=== PATIENT | female | born 1990 | race Caucasian/White ===

== ENCOUNTER 2018-09-08 08:34 | Inpatient (IN) | payer MEDICAID ==
[2018-09-08 09:44] LABS: ADD MAN DIFF? NO
[2018-09-08 09:50] LABS: WHITE BLOOD COUNT 8.9 10^3/ul (4.8-10.8)
[2018-09-08 09:50] LABS: BASOPHILS % 0.2 % (0.0-2.0); EOSINOPHILS % 0.3 % (0.0-7.0); HEMATOCRIT 37.7 % (37.0-47.0); HEMOGLOBIN 12.5 g/dl (12.0-16.0); LYMPHOCYTES # 1.6 10^3/ul (0.8-2.9); LYMPHOCYTES % 17.8 % (15.0-51.0); MEAN CORPUSCULAR HEMOGLOBIN 29.3 pg (29.0-33.0); MEAN CORPUSCULAR HGB CONC 33.2 g/dl (32.0-37.0); MEAN CORPUSCULAR VOLUME 88.3 fl (82.0-101.0); MONOCYTE # 0.6 10^3/ul (0.3-0.9); MONOCYTES % 6.5 % (0.0-11.0); NEUTROPHIL # 6.6 10^3/ul (1.6-7.5); NEUTROPHILS % 74.5 % (39.0-77.0); PLATELET COUNT 187 10^3/UL (140-415); RED BLOOD COUNT 4.27 10^6/ul (4.20-5.40); RED CELL DISTRIBUTION WIDTH 12.1 % (11.5-14.5)
[2018-09-08 10:03] LABS: ADD UMIC YES; UR ASCORBIC ACID NEGATIVE (NEGATIVE); UR BILIRUBIN (Dip) NEGATIVE (NEGATIVE); UR BLOOD (Dip) 3+ mg/dL (NEGATIVE); UR CLARITY CLEAR (CLEAR); UR COLOR YELLOW (YELLOW); UR GLUCOSE (Dip) NEGATIVE (NEGATIVE); UR KETONES (Dip) NEGATIVE (NEGATIVE); UR LEUKOCYTE ESTERASE (Dip) NEGATIVE Leu/ul (NEGATIVE); UR NITRITE (Dip) NEGATIVE (NEGATIVE); UR RBC > 182 /HPF (0-5); UR SPECIFIC GRAVITY (Dip) 1.014 (1.003-1.030); UR TOTAL PROTEIN (Dip) 1+ mg/dl (NEGATIVE); UR UROBILINOGEN (Dip) NEGATIVE (NEGATIVE); UR WBC 1 /HPF (0-5)
[2018-09-08 10:07] LABS: ALANINE AMINOTRANSFERASE 21 IU/L (13-69); ALBUMIN 3.8 g/dl (3.3-4.9); ALBUMIN/GLOBULIN RATIO 1.05; ALKALINE PHOSPHATASE 105 IU/L (42-121); ANION GAP 8 (5-13); ASPARTATE AMINO TRANSFERASE 21 IU/L (15-46); BILIRUBIN,INDIRECT 0.5 mg/dl (0-1.1); BILIRUBIN,TOTAL 0.5 mg/dl (0.2-1.3); BLOOD UREA NITROGEN 6 mg/dl (7-20); CALCIUM 9.3 mg/dl (8.4-10.2); CARBON DIOXIDE 23 mmol/L (21-31); CHLORIDE 108 mmol/L (97-110); Estimated GFR > 60 mL/min (>60); GLUCOSE 107 mg/dl (70-220); SODIUM 139 mmol/L (135-144); TOTAL PROTEIN 7.4 g/dl (6.1-8.1); URIC ACID 5.1 mg/dl (3.1-7.9)
[2018-09-08 10:08] LABS: INR 0.91; PROTIME 12.4 Sec (11.9-14.9)
[2018-09-08 10:09] LABS: PARTIAL THROMBOPLASTIN TIME 26.1 Sec (23.0-35.0)
[2018-09-08] MEDS ORDERED: ACETAMINOPHEN 325 MG TAB PO (11:30)
[2018-09-08] MEDS ORDERED: NACL 0.9% 3 ML SYG IV (11:30)
[2018-09-08] MEDS: INSULIN ASPART [NOVOLOG] 3 ML PEN SC ×2 (12:30→17:35)
[2018-09-08] MEDS: LACTATED RINGER'S 1,000 ML IV ×3 (12:55→22:02)
[2018-09-08] MEDS: PRENATAL VITAMIN PO (13:00)
[2018-09-08 13:32] LABS: UR BILIRUBIN (Dip) NEGATIVE (NEGATIVE); UR BLOOD (Dip) 3+ mg/dL (NEGATIVE); UR CLARITY SLIGHTLY CLOUDY (CLEAR); UR COLOR YELLOW (YELLOW); UR GLUCOSE (Dip) NEGATIVE (NEGATIVE); UR KETONES (Dip) 1+ mg/dL (NEGATIVE); UR LEUKOCYTE ESTERASE (Dip) NEGATIVE Leu/ul (NEGATIVE); UR NITRITE (Dip) NEGATIVE (NEGATIVE); UR SPECIFIC GRAVITY (Dip) 1.008 (1.003-1.030); UR TOTAL PROTEIN (Dip) 1+ mg/dl (NEGATIVE); UR UROBILINOGEN (Dip) NEGATIVE (NEGATIVE)
[2018-09-08 13:33] LABS: ADD UMIC YES; UR ASCORBIC ACID NEGATIVE (NEGATIVE); UR BACTERIA FEW /HPF (NONE SEEN); UR RBC > 182 /HPF (0-5); UR SQUAMOUS EPITHELIAL CELL FEW /HPF (FEW); UR WBC 6 /HPF (0-5)
[2018-09-08] MEDS: BETAMET NA PHOS/AC(6 MG/ML) 2 ML INJ SYG IM (13:46)
[2018-09-08] MEDS: ACCU-CHEK XX ×4 (16:00→19:35)
[2018-09-08] MEDS ORDERED: OXYTOCIN 30 UNITS/LR 500 ML IV (17:30)
[2018-09-08] MEDS ORDERED: CEFAZOLIN 2 GM/50 ML (PMX) 50 ML IVPB (17:30)
[2018-09-08] MEDS ORDERED: AZITHROMYCIN 500MG/NS (PMX) 250 ML IV (17:30)
[2018-09-08] MEDS ORDERED: MAGNESIUM SULFATE 4 GM/100 ML 100 ML (17:34)
[2018-09-08] MEDS: MAGNESIUM SULFATE 4 GM/100 ML 100 ML IV (18:06)
[2018-09-08] MEDS: MAGNESIUM SULFATE 20 GM/500 ML 500 ML IV (18:16)
[2018-09-08 19:56] LABS: HEPATITIS B SURFACE ANTIGEN NEGATIVE (NEGATIVE)
[2018-09-08] MEDS: NPH, HUMAN INSULIN ISOPHANE 3ML VIAL SC (21:00)
[2018-09-09] MEDS: BETAMET NA PHOS/AC(6 MG/ML) 2 ML INJ SYG IM (01:08)
[2018-09-09 01:10] LABS: MAGNESIUM 4.1 mg/dl (1.7-2.5)
[2018-09-09] MEDS: MAGNESIUM SULFATE 20 GM/500 ML 500 ML IV ×2 (04:56→15:39)
[2018-09-09] MEDS: ACCU-CHEK XX ×8 (06:12→21:14)
[2018-09-09 06:46] LABS: MAGNESIUM 4.1 mg/dl (1.7-2.5)
[2018-09-09] MEDS ORDERED: NON-FORMULARY/PATIENT OWN MED (Prenatal Vit No.124/Iron/FA (Prenatal Vitamin Tablet) 1 EAC PO (09:00)
[2018-09-09] MEDS: CEPHALEXIN 500 MG CAP PO ×3 (09:07→21:15)
[2018-09-09] MEDS: PRENATAL VITAMIN PO (09:07)
[2018-09-09 12:09] LABS: ADD MAN DIFF? NO
[2018-09-09 12:19] LABS: WHITE BLOOD COUNT 13.8 10^3/ul (4.8-10.8)
[2018-09-09 12:19] LABS: BASOPHILS % 0.1 % (0.0-2.0); HEMATOCRIT 34.9 % (37.0-47.0); HEMOGLOBIN 11.6 g/dl (12.0-16.0); LYMPHOCYTES # 1.5 10^3/ul (0.8-2.9); LYMPHOCYTES % 11.1 % (15.0-51.0); MEAN CORPUSCULAR HEMOGLOBIN 29.7 pg (29.0-33.0); MEAN CORPUSCULAR HGB CONC 33.2 g/dl (32.0-37.0); MEAN CORPUSCULAR VOLUME 89.3 fl (82.0-101.0); MEAN PLATELET VOLUME 11.2 fl (7.4-10.4); MONOCYTE # 0.7 10^3/ul (0.3-0.9); MONOCYTES % 5.3 % (0.0-11.0); NEUTROPHIL # 11.4 10^3/ul (1.6-7.5); NEUTROPHILS % 82.3 % (39.0-77.0); PLATELET COUNT 189 10^3/UL (140-415); RED BLOOD COUNT 3.91 10^6/ul (4.20-5.40); RED CELL DISTRIBUTION WIDTH 12.2 % (11.5-14.5)
[2018-09-09] MEDS: LACTATED RINGER'S 1,000 ML IV ×2 (12:27→20:55)
[2018-09-09 12:35] LABS: MAGNESIUM 4.2 mg/dl (1.7-2.5)
[2018-09-09 18:04] LABS: MAGNESIUM 4.2 mg/dl (1.7-2.5)
[2018-09-09] MEDS: INSULIN ASPART [NOVOLOG] 3 ML PEN SC ×3 (19:50→19:51)
[2018-09-09] MEDS: NPH, HUMAN INSULIN ISOPHANE 3ML VIAL SC (21:18)
[2018-09-10 01:04] LABS: MAGNESIUM 4.3 mg/dl (1.7-2.5)
[2018-09-10] MEDS: LACTATED RINGER'S 1,000 ML IV ×2 (01:23→13:49)
[2018-09-10] MEDS: MAGNESIUM SULFATE 20 GM/500 ML 500 ML IV (01:26)
[2018-09-10 06:57] LABS: MAGNESIUM 3.9 mg/dl (1.7-2.5)
[2018-09-10] MEDS: INSULIN ASPART [NOVOLOG] 3 ML PEN SC ×4 (07:35→19:49)
[2018-09-10] MEDS: ACCU-CHEK XX (07:45)
[2018-09-10] MEDS: CEPHALEXIN 500 MG CAP PO ×3 (09:14→21:09)
[2018-09-10] MEDS: PRENATAL VITAMIN PO (09:14)
[2018-09-10 11:36] LABS: COLLECTION PERIOD 24 hrs
[2018-09-10 12:33] LABS: SCRET 0.55 mg/dl (0.44-1.00)
[2018-09-10 12:34] LABS: COLLECTION PERIOD 24 hrs; CREATININE CLEARANCE 251.4 mls/min (84.0-162.0); CREATININE,URINE RANDOM 54.56 mg/dl (20-320); VOLUME 3650 ml/24hrs; VOLUME 3650 mls
[2018-09-10] MEDS: NPH, HUMAN INSULIN ISOPHANE 3ML VIAL SC (21:19)
[2018-09-11] MEDS: LACTATED RINGER'S 1,000 ML IV (02:37)
[2018-09-11] MEDS: PRENATAL VITAMIN PO (08:50)
[2018-09-11] MEDS: INSULIN ASPART [NOVOLOG] 3 ML PEN SC ×2 (19:30)
[2018-09-11] MEDS: ACCU-CHEK XX ×8 (21:38→21:41)
[2018-09-11] MEDS: NPH, HUMAN INSULIN ISOPHANE 3ML VIAL SC (22:15)
[2018-09-12] MEDS: PRENATAL VITAMIN PO (09:47)
[2018-09-12 10:46] LABS: 24 HR POTASSIUM VOLUME 3650 mls; COLLECTION PERIOD 24 hrs; URINE POTASSIUM 23.7 mmol/l
[2018-09-12 10:47] LABS: VOLUME 3650 mls
[2018-09-12 10:48] LABS: COLLECTION PERIOD 24 hrs
[2018-09-12] MEDS: LACTATED RINGER'S 1,000 ML IV (19:30)
[2018-09-12] MEDS: ACCU-CHEK XX ×8 (19:35→22:59)
[2018-09-12 19:59] LABS: ADD MAN DIFF? NO
[2018-09-12 20:23] LABS: BASOPHILS % 0.3 % (0.0-2.0); EOSINOPHILS % 0.4 % (0.0-7.0); HEMATOCRIT 37.9 % (37.0-47.0); HEMOGLOBIN 12.4 g/dl (12.0-16.0); LYMPHOCYTES # 2.4 10^3/ul (0.8-2.9); LYMPHOCYTES % 21.8 % (15.0-51.0); MEAN CORPUSCULAR HEMOGLOBIN 29.2 pg (29.0-33.0); MEAN CORPUSCULAR HGB CONC 32.7 g/dl (32.0-37.0); MEAN CORPUSCULAR VOLUME 89.2 fl (82.0-101.0); MEAN PLATELET VOLUME 11.2 fl (7.4-10.4); MONOCYTE # 0.9 10^3/ul (0.3-0.9); MONOCYTES % 7.7 % (0.0-11.0); NEUTROPHIL # 7.7 10^3/ul (1.6-7.5); NEUTROPHILS % 69.3 % (39.0-77.0); PLATELET COUNT 180 10^3/UL (140-415); RED BLOOD COUNT 4.25 10^6/ul (4.20-5.40); RED CELL DISTRIBUTION WIDTH 12.5 % (11.5-14.5)
[2018-09-12] MEDS: INSULIN ASPART [NOVOLOG] 3 ML PEN SC ×3 (21:43→22:09)
[2018-09-12] MEDS: NPH, HUMAN INSULIN ISOPHANE 3ML VIAL SC (22:10)
[2018-09-13] MEDS: LACTATED RINGER'S 1,000 ML IV ×3 (00:42→18:12)
[2018-09-13] MEDS ORDERED: CEFAZOLIN 2 GM/50 ML (PMX) 50 ML IVPB (11:47)
[2018-09-13] MEDS: CITRIC ACID/NA CITRATE 30 ML CUP PO (11:52)
[2018-09-13] MEDS: METOCLOPRAMIDE 10 MG INJ IV (11:52)
[2018-09-13] MEDS: FAMOTIDINE 20 MG INJ IV (11:53)
[2018-09-13 12:01] LABS: ADD MAN DIFF? NO
[2018-09-13 12:03] LABS: WHITE BLOOD COUNT 10.6 10^3/ul (4.8-10.8)
[2018-09-13 12:03] LABS: BASOPHILS % 0.2 % (0.0-2.0); EOSINOPHILS % 0.4 % (0.0-7.0); HEMATOCRIT 37.7 % (37.0-47.0); HEMOGLOBIN 12.3 g/dl (12.0-16.0); LYMPHOCYTES # 2.3 10^3/ul (0.8-2.9); LYMPHOCYTES % 21.4 % (15.0-51.0); MEAN CORPUSCULAR HEMOGLOBIN 29.3 pg (29.0-33.0); MEAN CORPUSCULAR HGB CONC 32.6 g/dl (32.0-37.0); MEAN CORPUSCULAR VOLUME 89.8 fl (82.0-101.0); MEAN PLATELET VOLUME 11.3 fl (7.4-10.4); MONOCYTE # 0.7 10^3/ul (0.3-0.9); MONOCYTES % 6.4 % (0.0-11.0); NEUTROPHIL # 7.5 10^3/ul (1.6-7.5); PLATELET COUNT 174 10^3/UL (140-415); RED CELL DISTRIBUTION WIDTH 12.5 % (11.5-14.5)
[2018-09-13] MEDS ORDERED: morphine SULFATE/PF (10 MG/10 ML) INJ (12:21)
[2018-09-13] MEDS ORDERED: PHENYLephrine (100 MCG/ML) 10ML SYG (12:49)
[2018-09-13] MEDS ORDERED: OXYTOCIN 30 UNITS/LR 500 ML IV ×3 (12:58→18:30)
[2018-09-13] MEDS ORDERED: DIPHENHYDRAMINE 50 MG INJ IV ×2 (13:00→18:00)
[2018-09-13] MEDS ORDERED: ONDANSETRON 4 MG INJ IV ×2 (13:00→18:00)
[2018-09-13] MEDS ORDERED: HYDROmorphONE 1 MG/5 ML IV SYRINGE IV (13:00)
[2018-09-13] MEDS ORDERED: KETOROLAC 30 MG INJ IV (13:00)
[2018-09-13] MEDS ORDERED: PROCHLORPERAZINE 10 MG INJ IV (13:00)
[2018-09-13] MEDS ORDERED: EPHEDrine 25 MG/5 ML SYG IV (13:00)
[2018-09-13] MEDS ORDERED: MEPERIDINE 25 MG INJ IV (13:00)
[2018-09-13] MEDS ORDERED: FENTAnyl 50 MCG/ML VIAL IV ×3 (13:00)
[2018-09-13] MEDS ORDERED: ONDANSETRON 4 MG INJ (13:17)
[2018-09-13] MEDS ORDERED: MIDAZOLAM 1 MG/ML 2 ML INJ (13:27)
[2018-09-13] MEDS ORDERED: FENTAnyl 50 MCG/ML VIAL (13:28)
[2018-09-13] MEDS ORDERED: MEPERIDINE 100 MG INJ (13:43)
[2018-09-13] MEDS: HYDROmorphONE 1 MG/5 ML IV SYRINGE IV ×2 (15:16→18:23)
[2018-09-13] MEDS ORDERED: ZOLPIDEM 5 MG TAB PO (18:00)
[2018-09-13] MEDS ORDERED: NALOXONE (0.4 MG/ML) INJ IV (18:00)
[2018-09-13] MEDS ORDERED: HYDROmorphONE 0.5 MG/0.5 ML SYG IV (18:00)
[2018-09-13] MEDS ORDERED: CARBOPROST 250 MCG INJ IM (18:30)
[2018-09-13] MEDS: IBUPROFEN 600 MG TAB PO (18:30)
[2018-09-13] MEDS ORDERED: HYDROCODONE/APAP (5/325) TAB PO (18:30)
[2018-09-13] MEDS ORDERED: NACL 0.9% 3 ML SYG IV (18:30)
[2018-09-13] MEDS ORDERED: MISOPROSTOL 200 MCG TAB PR (18:30)
[2018-09-13] MEDS ORDERED: LANOLIN HPA 1 PKT TOP (18:30)
[2018-09-13] MEDS ORDERED: METHYLERGONOVINE 0.2 MG INJ IM (18:30)
[2018-09-13] MEDS: OXYTOCIN 30 UNITS/LR 500 ML IV (19:03)
[2018-09-13] MEDS: KETOROLAC 30 MG INJ IV (20:06)
[2018-09-13] MEDS: ACCU-CHEK XX (21:51)
[2018-09-13] MEDS: HYDROmorphONE 0.5 MG/0.5 ML SYG IV (23:11)
[2018-09-14] MEDS: KETOROLAC 30 MG INJ IV ×2 (03:08→11:43)
[2018-09-14] MEDS: LACTATED RINGER'S 1,000 ML IV (04:27)
[2018-09-14] MEDS: IBUPROFEN 600 MG TAB PO ×5 (06:00→23:33)
[2018-09-14] MEDS: ACCU-CHEK XX ×5 (07:00→20:54)
[2018-09-14] MEDS: HYDROmorphONE 0.5 MG/0.5 ML SYG IV (07:22)
[2018-09-14 09:02] LABS: ADD MAN DIFF? NO
[2018-09-14 09:05] LABS: WHITE BLOOD COUNT 13.9 10^3/ul (4.8-10.8)
[2018-09-14 09:05] LABS: BASOPHILS % 0.2 % (0.0-2.0); EOSINOPHILS % 0.1 % (0.0-7.0); HEMATOCRIT 31.9 % (37.0-47.0); HEMOGLOBIN 10.5 g/dl (12.0-16.0); LYMPHOCYTES # 1.9 10^3/ul (0.8-2.9); LYMPHOCYTES % 13.8 % (15.0-51.0); MEAN CORPUSCULAR HEMOGLOBIN 29.7 pg (29.0-33.0); MEAN CORPUSCULAR HGB CONC 32.9 g/dl (32.0-37.0); MEAN CORPUSCULAR VOLUME 90.1 fl (82.0-101.0); MEAN PLATELET VOLUME 11.2 fl (7.4-10.4); MONOCYTE # 0.9 10^3/ul (0.3-0.9); MONOCYTES % 6.6 % (0.0-11.0); NEUTROPHIL # 10.9 10^3/ul (1.6-7.5); NEUTROPHILS % 78.7 % (39.0-77.0); PLATELET COUNT 162 10^3/UL (140-415); RED BLOOD COUNT 3.54 10^6/ul (4.20-5.40); RED CELL DISTRIBUTION WIDTH 12.2 % (11.5-14.5)
[2018-09-15] MEDS: IBUPROFEN 600 MG TAB PO ×3 (05:35→17:49)
[2018-09-15] MEDS: ACCU-CHEK XX ×5 (07:45→22:00)
[2018-09-16] MEDS: IBUPROFEN 600 MG TAB PO ×3 (00:13→11:43)
[2018-09-16] MEDS: ACCU-CHEK XX ×4 (08:10→17:35)
[2018-09-16] MEDS: MEASLES,MUMPS,RUBELLA VACCINE INJ SC* (08:17)
[2018-09-16] MEDS: DIPHTH/TET/ACEL PERTUSS (ADULT) 0.5 ML VIAL IM* (11:44)
== END 2018-09-16 18:42 | disposition home or self-care (01) | DRG 783 ==
LOC: OBT 08:34 → L-D 09-13 12:00 → OBT 10:57 → L-D 09-13 14:28 → PP1 11:22 → L-D 12:14
PROVIDERS: Obstetrics & Gynecology
PROC: 10D00Z1 Extraction of Products of Conception, Low, Open Approach (ICD-10-PCS; principal; 2018-09-13)
PROC: 0UT70ZZ Resection of Bilateral Fallopian Tubes, Open Approach (ICD-10-PCS; 2018-09-13)
DX: O65.5 Obstructed labor due to abnormality of maternal pelvic organs (principal); O60.13X0 Preterm labor second trimester with preterm delivery third trimester, not applicable or unspecified; O24.429 Gestational diabetes mellitus in childbirth, unspecified control; O34.211 Maternal care for low transverse scar from previous cesarean delivery; Z3A.34 34 weeks gestation of pregnancy; Z37.0 Single live birth
CPT/HCPCS: 36415; 76815; 76817; 76818; 80053; 81001; 82436; 82575; 82962; 83735; 84133; 84156; 84300; 84560; 85025; 85384; 85460; 85610; 85730; 86850; 86900; 86901; 87086; 87340; 88302; 88307; 90715